=== PATIENT | male | born 1970 | race Caucasian/White ===

== ENCOUNTER 2017-01-19 19:56 | Emergency (ER) ==
[2017-01-19 20:54] VITALS: BP 143/99
== END 2017-01-19 22:00 | disposition left against medical advice (07) ==
LOC: ER 19:56
DX: Z53.21 Procedure and treatment not carried out due to patient leaving prior to being seen by health care provider (principal)

== ENCOUNTER 2017-01-20 09:58 | Emergency (ER) | payer OTHER ==
[2017-01-20 10:59] LABS: APPEARANCE,URINE CLEAR; BILIRUBIN,URINE NEGATIVE (NEGATIVE); GLUCOSE, URINE NEGATIVE (NEGATIVE); KETONES,URINE NEGATIVE (NEGATIVE); LEUKOCYTE ESTERASE,URINE NEGATIVE (NEGATIVE); NITRITE,URINE NEGATIVE (NEGATIVE); PROTEIN,URINE NEGATIVE (NEGATIVE); URINE SPECIFIC GRAVITY 1.017; UROBILINOGEN,URINE NEGATIVE mg/dL (<2.0)
[2017-01-20 11:06] LABS: ABSOLUTE EOSINOPHILS # (AUTO) 0.2 10^3/uL (0.0-0.6); ABSOLUTE LYMPHOCYTES (AUTO) 1.3 10^3/uL (0.5-4.7); ABSOLUTE MONOCYTES (AUTO) 0.3 10^3/uL (0.1-1.4); ABSOLUTE NEUT (AUTO) 2.4 10^3/uL (1.7-8.2); EOSINOPHILS % (AUTO) 3.9 % (0-6); HEMATOCRIT 45.8 % (37.9-51.0); HEMOGLOBIN 15.6 g/dL (13.5-17.0); LYMPHOCYTES % (AUTO) 30.7 % (13-45); MEAN CORPUSCULAR HEMOGLOBIN 31.9 pg (27.0-33.4); MEAN CORPUSCULAR HGB CONC 34.2 g/dL (32.0-36.0); MEAN CORPUSCULAR VOLUME 93 fl (80-97); RED CELL DISTRIBUTION WIDTH 13.8 % (11.5-14.0); SEGMENTED NEUTROPHILS % (AUTO) 56.4 % (42-78); WHITE BLOOD COUNT 4.3 10^3/uL (4.0-10.5)
[2017-01-20] MEDS ORDERED: ONDANSETRON HCL INJ/PF 4 MG/2 ML SDV IV ONE (11:10)
[2017-01-20] MEDS ORDERED: MORPHINE SULFATE 10 MG/ML INJ IV ONE (11:10)
[2017-01-20] MEDS ORDERED: NORMAL SALINE 1000 ML 1,000 ML IV PRN (11:10)
[2017-01-20 11:17] LABS: ALANINE AMINOTRANSFERASE 51 U/L (21-72); ALBUMIN 4.8 g/dL (3.5-5.0); ALKALINE PHOSPHATASE 110 U/L (38-126); ANION GAP 10 (5-19); ASPARTATE AMINO TRANSFERASE 31 U/L (17-59); BILIRUBIN,DIRECT 0.4 mg/dL (0.0-0.4); BILIRUBIN,TOTAL 0.6 mg/dL (0.2-1.3); BLOOD UREA NITROGEN 12 mg/dL (7-20); CALCIUM 10.1 mg/dL (8.4-10.2); CARBON DIOXIDE 30 mmol/L (22-30); CHLORIDE 102 mmol/L (98-107); CREATININE RESULT 0.93 mg/dL (0.52-1.25); GLUCOSE 101 mg/dL (75-110); LIPASE 132.3 U/L (23-300); POTASSIUM 4.8 mmol/L (3.6-5.0); SODIUM 141.9 mmol/L (137-145); TOTAL PROTEIN 8.2 g/dL (6.3-8.2)
--- NOTE | 2017-01-20 11:26 | ER Document Report ---
ED GI/ - General Chief Complaint: Groin Pain Stated Complaint: PELVIC PAIN Time Seen by Provider: 01/20/17 10:54 Mode of Arrival: Ambulatory Information source: Patient TRAVEL OUTSIDE OF THE [place] IN LAST 30 DAYS: No - HPI Patient complains to provider of: Abdominal pain, Groin pain Onset: Other - 5 days Timing/Duration: Gradual, Persistent, Worse Quality of pain: Achy, Pressure, Sharp Severity at maximum: Moderate Severity in ED: Moderate Pain Level: 4 Location: LLQ, Suprapubic Associated symptoms: Constipation, Nausea Exacerbated by: Denies Relieved by: Denies Similar symptoms previously: No Recently seen / treated by doctor: No Notes: 01/20/17 11:24 Patient is a 46-year-old male who is currently visiting from [place], who presents to the emergency room today complaining of 5 day history of lower abdominal pain which now radiates into his left hip and thigh, he reports that he initially had some constipation so he took milk of mag and has had some watery stools since then but does not feel as though he actually has had a full bowel movement, patient does have some nausea without vomiting, no fevers, no difficulty urinating, no hematuria, no blood in his stools, no history of similar symptoms previously, patient denies a history of trauma or injury, he did drive approximately 14 hours from [place] stopping only twice along the way, denies any calf pain, no chest pain or shortness of breath, he does have a history of hypertension for which he takes lisinopril, patient denies any penile discharge, no testicular pain or swelling, no recent unprotected sex 01/20/17 11:26 - Related Data Allergies/Adverse Reactions: No Known Allergies Allergy (Verified 01/20/17 10:07) Home Medications: Current Home Medications Lisinopril 20 mg PO DAILY 01/20/17 [History] Past Medical History - General Information source: Patient - Social History Smoking Status: Current Every Day Smoker Chew tobacco use (# tins/day): No Frequency of alcohol use: Occasional Drug Abuse: None Family History: Reviewed & Not Pertinent - Past Medical History Cardiac Medical History: Reports: Hx Hypercholesterolemia, Hx Hypertension Renal/ Medical History: Denies: Hx Peritoneal Dialysis Past Surgical History: Reports: Hx Orthopedic Surgery - right knee Review of Systems - Review of Systems Constitutional: No symptoms reported EENT: No symptoms reported Cardiovascular: No symptoms reported Respiratory: No symptoms reported Gastrointestinal: See HPI Genitourinary: No symptoms reported Male Genitourinary: See HPI Musculoskeletal: No symptoms reported Skin: No symptoms reported Hematologic/Lymphatic: No symptoms reported Neurological/Psychological: No symptoms reported -: Yes All other systems reviewed and negative Physical Exam - Vital signs Vitals: Temp Pulse Resp BP Pulse Ox 98.4 F 82 16 141/95 H 98 01/20/17 10:04 01/20/17 10:04 01/20/17 10:04 01/20/17 10:04 01/20/17 10:04 Course - Re-evaluation Re-evalutation: 01/20/17 16:29 Lab and imaging findings were discussed with patient at bedside which are unremarkable, patient was discharged with pain medication and information for follow-up, advised to return if any additional concerns, patient acknowledges understanding and agreement with this plan - Vital Signs Vital signs: Temp Pulse Resp BP Pulse Ox 98.5 F 82 16 127/85 H 96 01/20/17 14:20 01/20/17 10:04 01/20/17 15:01 01/20/17 15:00 01/20/17 15:01 - Laboratory Result Diagrams: 01/20/17 10:30 01/20/17 10:30 - Diagnostic Test Radiology reviewed: Image reviewed, Reports reviewed - EKG Interpretation by Me EKG shows normal: Sinus rhythm Rate: Normal Rhythm: NSR Discharge - Discharge Clinical Impression: Abdominal pain Qualifiers: Abdominal location: lower abdomen, unspecified Qualified Code(s): R10.30 - Lower abdominal pain, unspecified Groin pain Qualifiers: Laterality: left Qualified Code(s): R10.32 - Left lower quadrant pain Condition: Stable Disposition: HOME, SELF-CARE Instructions: Abdominal Pain ([facility]), Oral Narcotic Medication ([facility]) Additional Instructions: Follow up with your primary care provider in one to 2 days. Return to the emergency room immediately if symptoms worsen or any additional concerns. Prescriptions: Hydrocodone/Acetaminophen [Hydrocodon-Acetaminophen 5-325] 1 each PO Q6 #20 tablet Ondansetron [Zofran Odt 4 mg Tablet] 1 - 2 tab PO Q4H #10 tab.meena
[2017-01-20 16:43] VITALS: BP 126/92
--- NOTE | 2017-01-20 20:21 | EKG REPORT ---
SEVERITY:- OTHERWISE NORMAL ECG - SINUS RHYTHM BORDERLINE LEFT AXIS DEVIATION : Confirmed by: Omari Lind MD 20-Jan-2017 20:21:15
--- NOTE | 2017-01-21 14:58 | RADIOLOGY REPORT (SQ) ---
EXAM DESCRIPTION: CT abdomen pelvis with oral and IV contrast COMPLETED DATE/TIME: 01/20/2017, 1356 hours REASON FOR STUDY: Left abdominal pain, left lower quadrant pain COMPARISON: No previous TECHNIQUE: Scanning of the abdomen and pelvis was performed with oral and IV contrast, reviewed at l deangelo bone and soft tissue windows with sagittal and coronal reconstructions. Immediate post IV contra st and delayed post IV contrast images were reviewed. Patient was injected with 95 mL of IV Isovue 370 %period% creatinine 0.93. RADIATION DOSE: 26 mGy LIMITATIONS: None FINDINGS: No CT findings of bowel obstruction, free intraperitoneal air or free fluid. No ventral h ernia or inguinal hernias. No CT signs of appendicitis or diverticulitis. Minimal posterior lung base atelectasis. No pleural fluid. Liver unremarkable. Tiny radiopaque gallstone in the dependent portion of the gallbladder axial image 27. No pericholecy stic fluid or gross gallbladder wall thickening. Spleen unremarkable. Pancreas, adrenal glands, kidneys, retroperitoneum, abdominal aorta, vena cava unremarkable. No free pelvic fluid. No pelvic masses or adenopathy. Oral contrast seen throughout the gastrointestinal tract without evidence of obstruction or bowel wal l thickening. Although the appendix is not definitely identified, there is no right lower quadrant i nflammatory change. Delayed images through the kidneys ureters and bladder are unremarkable. Sagittal and coronal reconstructions demonstrate mild lower lumbar degenerative disc changes. Report called to the emergency room attending physician, Dr. Plata IMPRESSION: No CT findings to explain history of left-sided abdominal pain.
== END 2017-01-20 16:43 | disposition home or self-care (01) ==
LOC: ER 09:58
DX: R10.32 Left lower quadrant pain (principal); R10.2 Pelvic and perineal pain; R11.0 Nausea; F17.200 Nicotine dependence, unspecified, uncomplicated; I10 Essential (primary) hypertension; Z79.899 Other long term (current) drug therapy
CPT/HCPCS: 93005; 99284; 96361; 96374; 96375; 36415; 83690; 85025; 80053; 81001; 74177; 93010; J2270; J2405; J7030